=== PATIENT | male | born 1985 ===

== ENCOUNTER 2022-01-08 17:28 | Emergency (ER) | payer SELFPAY ==
[2022-01-08 17:36] VITALS: BP 145/90; PULSE 75; RESP 18; TEMP 36.5; O2SAT 100
--- NOTE | 2022-01-08 18:04 | ED.ALLEREA ---
HPI - Allergic Reaction General Chief complaint: Allergic Reaction Stated complaint: Allergic Reaction Time Seen by Provider: 01/08/22 18:00 Source: patient Mode of arrival: ambulatory Limitations: no limitations History of Present Illness HPI narrative: 36 y/o female presented for c/o lip swelling and left cheek swelling, onset 1500 today. Endorses it is improving since onset today. Denies throat or tongue itching/swelling, shortness of breath or wheezing. Patient reports intermittent episodes of lip swelling since September when he received the covid booster shot. States symptoms worsen with each episode. Denies changes to food, medication, body care, or detergent. also reports she has had lip swelling since 2020. Related Data Allergies Allergy/AdvReac Type Severity Reaction Status Date / Time No Known Allergies Allergy Verified 01/08/22 17:45 Review of Systems Review of Systems: CONSTITUTIONAL: Denies body aches, fever, chills, or sweats. EYES: Denies visual changes, redness, or discharge. ENT: reports lip swelling Denies rhinorrhea, congestion CARDIOVASCULAR: Denies chest pain, palpitations, or edema. RESPIRATORY: Denies cough or dyspnea. GASTROINTESTINAL: Denies abdominal pain, nausea, vomiting, or diarrhea. SKIN: denies rash MUSCULOSKELETAL: Denies back pain, joint pain, or myalgia. NEUROLOGIC: Denies headache, numbness, tingling, or weakness. PMFSH Comments At time of signature, I have reviewed and agree with nursing past medical, surgical, social and family history unless otherwise noted. Please see nursing chart for further information. There is no relevant family history pertinent to the presenting complaint Exam Narrative: GENERAL: Well-appearing HEAD: Normocephalic, atraumatic. EYES: conjunctivae clear, and EOMI. ENT: Mucous membranes moist. Lips with moderate swelling. Oropharynx without edema, erythema or lesions. NECK: Supple. No lymphadenopathy CHEST: Clear to auscultation. HEART: Regular rate and rhythm. SKIN: Warm, dry. NEURO: Alert and oriented x3. Course Course Emergency Course: Patient is aware of diagnosis, understands and agrees to treatment plan. Anticipatory guidance given. Patient agrees to follow-up as directed and is aware of reasons to seek care at the emergency department. Portions of this record may have been created with voice recognition software Level of Care: Express Care Visit Vital Signs Vital signs: Vital Signs Temperature 97.7 F 01/08/22 17:36 Pulse Rate 75 01/08/22 17:36 Respiratory Rate 18 01/08/22 17:36 Blood Pressure 145/90 H 01/08/22 17:36 Pulse Oximetry 100 01/08/22 17:36 Oxygen Delivery Room Air 01/08/22 17:36 Temperature 97.7 F 01/08/22 17:36 Pulse Rate 75 01/08/22 17:36 Respiratory Rate 18 01/08/22 17:36 Blood Pressure 145/90 H 01/08/22 17:36 Pulse Oximetry 100 01/08/22 17:36 Oxygen Delivery Room Air 01/08/22 17:36 Reviewed MDM - Allergic Reaction MDM Narrative Medical decision making narrative: IM Solu-Medrol and Pepcid given for symptoms. Patient reports significant improvement since the onset of lip swelling today. Advised supportive measures and signs/symptoms to go to the ER. Pt is appropriate for outpt treatment and f/u. Differential Diagnosis Differential diagnosis: Likely allergic reaction, angioedema, adverse reaction to drug, viral enanthem and urticaria Discharge Plan Discharge Clinical Impression: Angioedema Qualifiers: Encounter type: initial encounter Qualified Code(s): T78.3XXA - Angioneurotic edema, initial encounter Patient Disposition: Home, Self-Care Condition: Stable Instructions: Angioedema (ED) Additional Instructions: Take the steroid and pepcid prescriptions as directed, start tomorrow Take Benadryl every 6-8 hours as needed Recommend daily Zyrtec or campos. Epi pen for emergency use. Cool compresses to the sites of itching, avoid hot water/showers etc Fol
[2022-01-08] MEDS: FAMOTIDINE 20 MG TABLET 40 MG PO (18:09)
[2022-01-08] MEDS: methylPREDNISolone SOD SUCC 125 MG VIAL IM (18:10)
--- NOTE | 2022-01-08 18:41 | PC.NURSE ---
PT REPORTS HE FEELS LIKE THE SWELLING IS IMPROVING. DENIES ANY RESP ISSUES, DIFFICULTY BREATHING. NO SWELLING TO TONGUE OR THROAT NOTED. HAS PHOTO OF PT AT [facility], GREAT IMPROVEMENT NOTED.
[2022-01-08 18:50] VITALS: PULSE 72; RESP 16; O2SAT 99
== END 2022-01-08 18:50 | disposition home or self-care (01) ==
PROVIDERS: Emergency Provider Nurse Practitioner Family
DX: T78.3XXA Angioneurotic edema, initial encounter (principal)
CPT/HCPCS: 96372; 99213; A9270; G0463; J2930

== ENCOUNTER 2025-02-05 11:35 | Emergency (ER) | payer SELFPAY ==
[2025-02-05 11:40] VITALS: BP 139/84; PULSE 96; RESP 16; TEMP 37; O2SAT 100
--- NOTE | 2025-02-05 12:33 | ED_ITS ---
HPI - Skin/Abscess/Foreign Bdy General Chief complaint: Skin/Abscess/Foreign Body Stated complaint: body rash Time Seen by Provider: 02/05/25 11:50 Source: patient and RN notes reviewed Mode of arrival: ambulatory Limitations: no limitations History of Present Illness HPI narrative: [id number] male patient presents Express Care complaining of full body rash started approximately 4-1/2 hours ago. Patient said he was not doing anything new this morning, he said he was drinking coffee bed when he noticed his back became very pruritic any rashes start on its back scattered throughout his arms, trunk, legs, face. Patient says he might be allergic to shellfish, he reports his hands become pruritic when he touches shrimp however has not touched shrugs recently. Patient has any swelling to the lips, tongue, throat, nausea, vomiting, difficulty breathing, shortness of breath, wheezing, fevers, cough, upper respiratory symptoms, any other symptoms. Patient eczema leg earlier today without any relief. Patient was seen here a few years ago for angioedema was discharge with epi pen, Medrol Dosepak, and Pepcid. Patient denies any significant past medical history. Related Data Allergies Allergy/AdvReac Type Severity Reaction Status Date / Time No Known Allergies Allergy Verified 02/05/25 11:42 Review of Systems Review of Systems: CONSTITUTIONAL: Denies fever, chills, or sweats. EYES: Denies visual changes, redness, or discharge. ENT: Denies rhinorrhea, congestion, sore throat, difficulty clearing secretions, or otalgia. CARDIOVASCULAR: Denies chest pain, palpitations, or edema. RESPIRATORY: Denies cough, difficulty breathing, wheezing, or dyspnea. GASTROINTESTINAL: Denies abdominal pain, nausea, vomiting, or diarrhea. GENITOURINARY: Denies dysuria or hematuria. SKIN: Positive for rash and itching. MUSCULOSKELETAL: Denies back pain, joint pain, or myalgia. NEUROLOGIC: Denies headache, numbness, or weakness. PSYCHIATRIC: Denies anxiety or depression. All other systems reviewed are negative, except as documented in HPI. PMFSH Comments At the time of my signature, I reviewed and agree with the nursing past medical, surgical, social, and family history. There is no relevant family history pertinent to the patient complaint. Exam Narrative: GENERAL: This is a well-nourished, well-developed adult, in no apparent distress. They are non ill-appearing, nontoxic appearing. HEAD: normocephalic, atraumatic. EYES: Sclera clear/white. Conjunctiva normal. Vision is grossly intact. Extraocular movements intact EARS: External ears normal, auditory canals clear and without drainage, TMs normal without perforation. Hearing grossly intact. NOSE: External nose normal with no obvious nasal discharge, nasal turbinates without redness, no rhinorrhea. THROAT: Mucous membranes moist, posterior pharynx clear, without erythema or swelling. Uvula midline. NECK: Neck supple, non-tender without lymphadenopathy, masses or thyromegaly. CARDIOVASCULAR: Regular rate and rhythm without murmurs, gallops, or rubs. RESPIRATORY: Clear to auscultation. Breath sounds equal bilaterally. No wheezes, rales, or rhonchi. SKIN: Erythematous macular papular, with wheels present scattered diffuse severe throughout the patient's back in scattered throughout the patient's arms, legs, and face. Nontender to palpate, it is pruritic. No exudate. No area of fluctuance or induration. NEURO: awake, alert, and oriented to person, place and time. There were no obvious focal neurologic abnormalities. EXTREMITIES: No joint tenderness, effusion, or edema noted. BACK: Nontender without deformity. No CVA tenderness. Course Course Emergency Course: Portions of this record may have been created with voice recognition software Level of Care: Express Care Visit Vital Signs Vital signs: Vital Signs Temperature 98.6 F 02/05/25 11:40 Pulse Rate 96 02/05/25 11:40 Respiratory Rate 16 02/05/25 11:40 Blood Pressure 139/84 02/05/25 11:40 Pulse Oximetry 100 02/05/25 11:40 Oxygen Delivery Room Air 02/05/25 11:40 Temperature 98.6 F 02/05/25 11:40 Pulse Rate 96 02/05/25 11:40 Respiratory Rate 16 02/05/25 11:40 Blood Pressure 139/84 02/05/25 11:40 Pulse Oximetry 100 02/05/25 11:40 Oxygen Delivery Room Air 02/05/25 11:40 Reviewed MDM - Skin/Abscess/Foreign Bdy MDM Narrative Medical decision making narrative: Appears patient is having allergic reaction, no evidence of anaphylaxis. Sounds are clear to auscultation. Vital signs hemodynamically stable. Will send patient home on prednisone. Advised patient to take Renee daily for next 5 days along with Pepcid daily next 5 days. Will refill patient's EpiPen as he never filled it. Advised patient follow-up PCP it and would benefit from being evaluated from an contracting executive given symptoms. Discussed physical exam findings. Advised supportive measures and signs/symptoms to go to the ER. Pt is ap propriate for outpt treatment and f/u. Differential Diagnosis Differential diagnosis: Likely urticaria, allergic reaction to drug, cellulitis, contact dermatitis and other (Anaphylaxis, allergic reaction) Critical Care Time Critical Care Time Critical Care Time: No Discharge Plan Discharge Clinical Impression: Urticaria Patient Disposition: Home Condition: Stable Instructions: Antibiotic Form, Urticaria (ED) Additional Instructions: Take the prednisone as directed. Take it in the morning and take it with food. Take Renee daily for next 5 days. Take 20 mg of Pepcid daily for next 5 days. You may use calamine lotion, camphor, hydrocortisone cream Benadryl cream as needed for itchiness symptoms. I have Refilled your EpiPen. Use only for any signs of anaphylaxis such as swelling to the face, tongue, throat, wheezing, difficulty breathing, nausea, vomiting. The use the EpiPen you need to call 911 or go to the ER immediately. Follow-up PCP in 3-5 days. If you develop any worsening redness, swelling, sling the face, tongue, lip, throat, nausea, vomiting fevers, breathing problems, or any other concerns please go to the ER immediately. Patient Language: [place] Prescriptions: New prednisone 20 mg tablet 40 mg PO DAILY 5 Days Qty: 10 0RF epinephrine [EpiPen] 0.3 mg/0.3 mL auto-injector 0.3 mg IM ONCE Qty: 1 0RF Rx Instructions: as a single dose; may repeat once, call 911 and go to the ER if you use it. Follow-up/Referrals: PHYSICIAN,UPHOLSTERER APPRENTICE [Primary Care Provider, Internal Medicine] Time of Disposition: 12:03
== END 2025-02-05 12:07 | disposition home or self-care (01) ==
DX: L50.9 Urticaria, unspecified (principal)
CPT/HCPCS: 99213; G0463